=== PATIENT | female | born 1995 | race Caucasian/White ===

== ENCOUNTER 2023-07-15 08:07 | Outpatient (CLI) | payer BC, SELFPAY ==
--- NOTE | 2023-07-15 08:15 | CRLHL7_ITS ---
For Patients: As a result of the Cures Act, medical imaging exams and procedure reports are released immediately into your electronic medical record. You may view this report before your referring provider. If you have questions, please contact your health care provider. INDICATION: First trimester scan, establish dates. COMPARISON: None. TECHNIQUE: Real-time rodriguez-scale imaging of the pelvis was performed. FINDINGS: Sonographic imaging demonstrates a single living intrauterine gestation. The embryo demonstrates a regular cardiac rate measuring 154 beats per minute. The embryo`s crown-rump length measurement of 1.6 cm corresponds to a gestational age of 8 weeks 0 days with a sonographic due date of 02/24/2024. There is a normal-appearing yolk sac. There are no gross abnormalities noted within the embryo at this early state of development. Incidental small cystic area adjacent to the gestational sac measuring 6 x 5 x 7 millimeters, of no significance. There is no evidence of a perigestational hemorrhage. The amount of fluid within the sac appears appropriate for gestational age. The cervix is closed. The myometrium appears normal. The ovaries are of normal size. Corpus luteal cyst left ovary. There are no suspicious fluid collections noted in the cul-de-sac. IMPRESSION: Single living intrauterine with sonographic gestational age 8 weeks 0 days and sonographic due date of 02/24/2024. Dictated by Edu Mosqueda MD @ 07/15/2023 9:59:37 AM (Electronically Signed)
== END 2023-07-15 08:08 | disposition home or self-care (01) ==
LOC: US 08:08
PROVIDERS: Visit Provider Advanced Practice Midwife
DX: Z34.91 Encounter for supervision of normal pregnancy, unspecified, first trimester (principal); Z3A.08 8 weeks gestation of pregnancy
CPT/HCPCS: 76817; 86703; 86706; 86803; 86850; 86900; 86901; 87086; 87340; 87491; 87591

== ENCOUNTER 2023-07-15 09:09 | Outpatient (CLI) | payer BC, SELFPAY ==
[2023-07-15 13:04] LABS: Chlamydia DNA Amplified* NOT DETECTED (No Detected); GC DNA Amplified* NOT DETECTED (No Detected)
== END 2023-07-15 09:10 | disposition home or self-care (01) ==
PROVIDERS: Visit Provider Advanced Practice Midwife
DX: Z34.91 Encounter for supervision of normal pregnancy, unspecified, first trimester (principal)
CPT/HCPCS: 86592; 86703; 86704; 86706; 86762; 86787; 86803; 86850; 86900; 86901; 87086; 87340; 87491; 87591

== ENCOUNTER 2023-11-04 11:19 | Outpatient (CLI) | payer BC, SELFPAY | END 2023-11-04 11:20 | disposition home or self-care (01) | LOC: NFLDREF 11:20 | PROVIDERS: Visit Provider Advanced Practice Midwife | DX: Z34.92 Encounter for supervision of normal pregnancy, unspecified, second trimester (principal) | CPT/HCPCS: 86592 ==

== ENCOUNTER 2023-11-12 07:16 | Outpatient (CLI) | payer BC, SELFPAY ==
--- NOTE | 2023-11-12 07:15 | CRLHL7_ITS ---
For Patients: As a result of the Century Cures Act, medical imaging exams and procedure reports are released immediately into your electronic medical record. You may view this report before your referring provider. If you have questions, please contact your health care provider. INDICATION: Right upper quadrant abdomen pain, patient 25 weeks TECHNIQUE: Ultrasound abdomen limited. Sonographic images of the right upper quadrant were obtained using rodriguez-scale and color Doppler images. COMPARISON: None FINDINGS: Liver: Normal in size and echotexture. No masses. No intrahepatic biliary dilatation. Gallbladder: No stones or sludge. Normal wall thickness. No pericholecystic fluid. Common bile duct: 3 mm. Pancreas: Normal. Right kidney: Normal in size. Moderate right hydronephrosis. No nephrolithiasis seen. IMPRESSION: 1. Moderate right hydronephrosis, possibly due to uterine compression. No nephrolithiasis seen by ultrasound. 2. Otherwise, remainder of the right upper quadrant ultrasound is unremarkable. No evidence of cholelithiasis or cholecystitis. Dictated by Macho Clinton MD @ 11/12/2023 4:23:41 PM (Electronically Signed)
== END 2023-11-12 07:17 | disposition home or self-care (01) ==
PROVIDERS: PCP Family Medicine; Visit Provider Advanced Practice Midwife
DX: R10.11 Right upper quadrant pain (principal); N13.30 Unspecified hydronephrosis
CPT/HCPCS: 76705

== ENCOUNTER 2023-11-18 15:49 | Outpatient (CLI) | payer BC, SELFPAY | END 2023-11-18 15:50 | disposition home or self-care (01) | PROVIDERS: PCP Family Medicine; Visit Provider Family Medicine | DX: R10.11 Right upper quadrant pain (principal) | CPT/HCPCS: 80053 ==

== ENCOUNTER 2024-01-27 15:41 | Outpatient (CLI) | payer BC, SELFPAY ==
[2024-01-27 15:49] VITALS: PULSE 67; O2SAT 98
[2024-01-27 15:54] VITALS: PULSE 72; O2SAT 97
[2024-01-27 15:57] VITALS: BP 133/87; PULSE 72; RESP 16; TEMP 36.6
[2024-01-27 15:59] VITALS: PULSE 67; O2SAT 97
--- NOTE | 2024-01-27 17:08 | PC.OBNST ---
The provider's electronic signature indicates the NST is reactive/appropriate for gestational age. *Note to provider: If an addendum is required, open the patient's chart and click on the note under the Nurse/Allied Health tab.
== END 2024-01-27 16:55 | disposition home or self-care (01) ==
LOC: OB OUT 15:43 → OB 15:46
PROVIDERS: PCP Family Medicine; Visit Provider Advanced Practice Midwife
DX: O35.BXX0 Maternal care for other (suspected) fetal abnormality and damage, fetal cardiac anomalies, not applicable or unspecified (principal); Z3A.36 36 weeks gestation of pregnancy
CPT/HCPCS: 59025; 87081; 87653; G0463

== ENCOUNTER 2024-02-06 09:30 | Inpatient (IN) | payer BC, SELFPAY ==
[2024-02-06] VITALS (84 sets, daily range): BP systolic 85–159; BP diastolic 50–102; PULSE 59–112; RESP 16; TEMP 36.6–37; O2SAT 88–100; BMI 31.8
[2024-02-06 09:47] LABS: Amnisure Rom* POSITIVE
[2024-02-06] MEDS: LACTATED RINGERS 1000 ML 1,000 ML 1200 ML IV ×2 (10:00→10:59)
--- NOTE | 2024-02-06 10:09 | P.LDBA_ITS ---
Subjective History of Present Illness Narrative: Charo is a 28 yo at 37 3/7 weeks gestation being admitted to Labor and Delivery for spontaneous onset of labor with SROM of clear fluid at 0815 this morning. She reports her labor started last night. She was able to sleep in between and woke up this morning with them getting more intense. She then said she vomited and had a gush of fluid so she was not sure if her water had broke or if she had peed. She has had minimal additional leaking of fluid. She e ndorses good movement and denies any bleeding. She is requesting an epidural for pain. Fetus has known Down Syndrome with suspected club feet, otherwise no other anomalies identified. Mom is on Lexapro 10 mg. Her full history and physical was dictated by Dr. Morgan on 02/04/2024. Please see this for details. Specific Issues/Plans Juan H&P by [facility] on 02/04/24 # Down Syndrome of fetus, positive Trisomy 21 testing Positive [id number] for Trisomy 21 Referral placed to [facility]/Genetic counselor with [facility] 08/06: [facility] for FISH testing at [facility], positive Trisomy 21. early level 2 scan at 17 weeks (scheduled on 09/19), and echo at 21 weeks (scheduled on 10/15/23). 09/19/2023: Level II US Echogenic intracardiac foci noted in left ventricle, suspected bilateral club feet, hypoplastic nasal bone, thickened nuchal fold, no other anomalies identified; Follow-up growth and anatomy in 3 weeks 10/15/2023: Level II follow-up. Hypoplastic nasal bone and bilateral club feet. EFW 53%ile. Suboptimal views of cervical spine, thoracic spine, lumbar spine, and sacral spine. Follow-up in 4 weeks with ongoing surveillance of growth. 11/11/2023: Level II follow-up. Remaining anatomy survey completed, no new anomalies detected; Growth WNL; Mild Polyhydramnios. Growth in 4 weeks, fluid recheck in 2 weeks. 11/25: See fluid follow-up below 01/15: BPP 8/8. bilateral club feet, MVP 7.0, EFW 12% 01/19: BPP 8/8, MVP 4.9 01/26: BPP 8/8, MVP 5.1, EFW 13% Weekly BPP at 32 weeks, with MFM. Weekly BPP for 37-40 weeks with NFH+C. Delivery recommended at 39 0/7 per MFM: scheduled for 02/17/24 # Persistent RUQ pain after eating. abdominal u/s ordered, r/o gallbladder problem, follow up with PCP after to discuss plan. Seen PCP with Normal workup. rpt if worsens # Mild Polyhydramnios, RESOLVED MVP 9.3 cm, VAZQUEZ 24.2 cm. Reassess fluid in 2 weeks with MFM 11/25: Mild poly follow-up, VAZQUEZ 24.8. breech presentation. 12/08: Poly resolved. VAZQUEZ 21.4, cephalic, EFW 35% # Migraine with aura has used Imitrex in the past # Orthostatic hypotension since age 12, per pt just gets dizzy when she gets up too fast # Anxiety/social anxiety Lexapro 10 mg Sees therapist every other week-coping ok at this time with diagnosis with therapy and medication. # Bilateral Club feet COVID: initial series and boosted x1 Flu: 06/11/2023 TDAP: 12/16/2023 OB - Problem Based A/P Additional Plan (1) Pain during labor: Status: Acute (2) Trisomy 21 of fetus, current : Status: Acute (3) Anxiety: Problem details: lexapro working well Status: Acute (4) Orthostatic hypotension: Problem details: since age 12 Status: Acute (5) 37 weeks gestation of : Status: Acute Plan ASSESSMENT:? 28 at 37 3/7 weeks gestation? complicated by:?Fetus with Down Syndrome, Mild Polyhydramnios resolved, Migraine with aura, orthostatic hypotension, Anxiety on Lexapro, bilateral club feet. Labor type: Spontaneous, Active labor? Category 1 FHR pattern.?? Labor complicated by: none? GBS negative? ? PLAN:? 1. Routine intrapartum cares as ordered. Continue with expectant management? 2. Monitoring per policy, continuous with epidural in place 3. Candidate for analgesia of choice if desired.? 4. Patient encouraged to reposition and ambulate to promote physiologic labor and .? 5. Peds provider notified of patient arrival. Will plan to have Peds in attendance at delivery. 6. Per OB Collaboration agreement, Dr. Hancock notified of patient on unit with suspected anomaly/genetic abnormality. 7. Anticipate ? Delivery/Labor/Induction Plan Plan: expectant management OB Exam Physical Exam Vital signs: Pulse BP Pulse Ox 73 116/83 99 02/06/24 09:20 02/06/24 09:20 02/06/24 09:21 Narrative: Vitals Reviewed Constitutional:? Alert and oriented x3 HEENT:? Normocephalic, atraumatic Neck:? Supple Lungs:? Clear to auscultation bilaterally Heart:? Regular rate and rhythm, no murmur, rub or gallop Abdomen:? Soft, nontender, and gravid. Vertex by Raymond's, confirmed with cervical exam. Extremities:? No edema or erythema Cervix: 5 cm/90%/-1 station/vertex NST: 115 bpm/moderate variability with episodes of minimal/10x10 accelerations/no decelerations/contractions every 2-4 minutes
[2024-02-06 10:23] LABS: Basophils Percent Auto 0.2 % (0.0-3.0); Eosinophils Percent Auto 0.3 % (0.0-7.0); Hematocrit 42.1 % (33.0-51.0); Hemoglobin* 13.9 gm/dL (12.0-16.0); Immature Granulocytes Pct Auto 1.1 %; Lymphocytes Percent Auto 9.4 % (20-44); Mean Corpuscular HGB Conc 33 gm/dL (32-36); Mean Corpuscular Hemoglobin 27 pg (26-34); Mean Corpuscular Volume 83 fL (80-100); Monocytes Percent Auto 4.4 % (0.0-11.0); Neutrophils Percent Auto 84.6 % (42.0-72.0); Platelet Count* 164 K/uL (140-440); RDW Coefficient of Variation % 13.3 % (11.5-15.5); White Blood Count* 13.26 K/uL (4.50-11.00)
[2024-02-06 10:32] LABS: Slide Review Reflex No
[2024-02-06] MEDS: LIDOCAINE 2% (PF) 5 ML VIAL EPIDURAL (10:41)
[2024-02-06] MEDS: ROPIVACAINE 0.2% 100 ml 100 ML 12 MG EPIDURAL (10:41)
--- NOTE | 2024-02-06 10:51 | PM.ANBPRC ---
[facility] Medical History History of toxic shock syndrome ?Z86.19 - Personal history of other infectious and parasitic diseases (ICD-10) Surgical History History of tympanostomy tube placement ?Z96.22 - Myringotomy tube(s) status (ICD-10) [place] teeth extracted ?K08.409 - Partial loss of teeth, unspecified cause, unspecified class (ICD-10) H/O rhinoplasty ?Z98.890 - Other specified postprocedural states (ICD-10) Family History Family/Other Breast cancer Father High blood pressure Psoriasis Maternal Grandfather Heart disease Maternal Grandmother Breast cancer Mother Breast cancer, Onset Age: 54 Depression High blood pressure Uncle Heart disease Cancer Aunt COPD (chronic obstructive pulmonary disease) Heart disease Paternal Grandmother Osteoporosis Sister Seizure disorder Social History Narrative: SOCIAL? ? Education: working on doctorate? ? 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 ? Partner: Juan? residential real estate assistant? Lives with: Juan, has roommate also fellow student? ? Pets: 3 dogs and one cat is roommates and she manages litter box? ? Abuse: Denies past ? Unable to assess current, partner present? ? Special Diet: Denies? ? Ok with a blood transfusion: yes? ? Culture or jainism beliefs: denies? RISK FACTORS? ? Exercise Times/wk: weight lifting and walking on treadmill, walking dogs about 3-4 times a week? ? Depression/Anxiety: yes anxiety? ? Previous Treatments: currently on medication ? Therapy current every other wekk SEGUN: 2 PHQ 9: 1? ? Seat Belt Use: Routinely ? Smoking: Denies past/present? ? Alcohol/day: Denies while ? socially when not ? Caffeine: one cup of coffee a day right now, used to drink energy drinks? ? Drug Use: Denies past/present? ? What is your current living situation?: I presently have a place to live Problems where you live: no known problems In the past 12 months, utilities in danger of being shut off: no In past 12 months, lack of transportation kept you from medical appts, meetings, work, or getting things needed for daily living: no In the past 12 mos, have been you worried that your food would run out before you had money to buy more?: never true In the past 12 mos, the food you bought just didn't last and you didn't have money to buy more?: never true Smoking Status: Never smoker How often does anyone, including family, friends and others, physically hurt you: never How often does anyone, including family, friends and others, insult or talk down to you: never How often does anyone, including family, friends and others, threaten you with harm: never How often does anyone, including family, friends and others, scream or curse at you: never Little interest or pleasure in doing things: not at all Feeling down, depressed, or hopeless: not at all Meds Home Medications and Allergies Home Medications Medication Instructions Recorded Confirmed Type doxylamine succinate 25 mg tablet 25 mg PO QHS PRN 07/15/23 02/06/24 History (Unisom (doxylamine)) vits no.126-ferrous fum 1 tab PO DAILY 07/15/23 02/06/24 History 28 mg iron-folic acid 800 mcg tablet (Classic ) pyridoxine (vitamin B6) 25 mg 25 mg PO BID 07/15/23 02/06/24 History tablet cholecalciferol (vitamin D3) 125 125 mcg PO QDAY 08/12/23 02/06/24 History mcg (5,000 unit) capsule aspirin 81 mg chewable tablet 81 mg PO QDAY 10/08/23 02/06/24 History calcium carbonate (Tums) 200 mg PO BID 12/30/23 02/06/24 History Allergies Allergy/AdvReac Type Severity Reaction Status Date / Time amoxicillin Allergy Mild Hives Verified 02/06/24 00:28 Results Labs Labs: Laboratory Results - last 24 hr 02/06/24 02/06/24 09:41 10:03 WBC 13.26 H RBC 5.10 Hgb 13.9 Hct 42.1 MCV 83 MCH 27 MCHC 33 RDW Coeff of Kenna 13.3 Plt Count 164 Neut % (Auto) 84.6 H Lymph % (Auto) 9.4 L [place] % (Auto) 4.4 Eos % (Auto) 0.3 Baso % (Auto) 0.2 Neut # (Auto) 11.20 H Lymph # (Auto) 1.20 [place] # (Auto) 0.60 Eos # (Auto) 0.00 Baso # (Auto) 0.00 Abs Immat Gran (auto) 0.10 Imm/Tot Granulo (auto) 1.1 Membrane Rupture POSITIVE Vital Signs Vital Signs: Last Vital Signs Pulse 91 02/06/24 10:50 BP 118/80 02/06/24 10:50 Pulse Ox 99 02/06/24 10:47 Weight: 78.982 kg Height: 157.48 cm Anesthesia Procedures Epidural Insertion Patient Location: OB Start Time: Stop Time: Start Date: 02/06/24 Stop Date: 02/06/24 Reason for Block: procedure for pain Patient Position: sitting Performed By: Wendie Flores Preanesthetic Checklist: IV checked, risks and benefits discussed, monitors and equipment checked, pre-op evaluation, timeout performed and anesthesia consent Prep: chlorhexidine gluconate Monitoring: blood pressure monitoring, continuous pulse oximetry and heart rate Approach: midline Vertebral Space: lumbar (1-5) Epidural Technique: ANASTASIIA saline Needle Type: Tuohy needle Injection Technique: continuous catheter (continuous catheter) Needle gauge: 17 Needle Length (cm): 10 cm Needle Insertion Depth (cm): 6 Catheter Gauge: 19 Catheter Type: multi-orifice Catheter at skin depth (cm): 15 Test Dose Result: negative and lidocaine 1.5% with epinephrine 1 to 200,000
[2024-02-06] MEDS: PHENYLEPHRINE 100 MCG/ML SYRINGE IVP (11:39)
[2024-02-06] MEDS: LACTATED RINGERS 1000 ML 1,000 ML 125 ML IV (14:09)
[2024-02-06] MEDS: OXYTOCIN 30 unit/500 ML in NS 30 UNIT/500 ML BAG 300 UNIT IVPB ×2 (15:57→19:05)
--- NOTE | 2024-02-06 16:12 | W.PM.VAGDE_ITS ---
OB Procedure Vag Delivery Mother Details Mother Details: The patient is a 28 year-old, 1, now Para 1, admitted on 02/06/24 at 37 3/7 weeks gestation. : 1 Para: 1 Weeks Gestation: 37.3 Admission Date: 02/06/24 Additional Details Amniotic Membrane Status: SROM Amniotic Membrane Rupture Date: 02/06/24 Amniotic Membrane Rupture Time: 08:15 Amniotic Membrane Fluid Description: Clear Analgesia/Anesthesia Type: Epidural Waterbirth: No [place]: Yes ([facility] only) Labor Onset: 09:45 Complete: 15:19 Pushin:32 Heart: heart tones during second stage were category II with minimal to moderate variability and decelerations with pushing that slowly returned to baseline between. This improved with position changes and guided breathing. Delivery Details Delivery Date: 02/06/24 Delivery Time: 15:46 Route of delivery: Infant Gender: Male Infant Viability: Alive; Heart Rate Present Position at Delivery: OA Delivery Details: Patient was admitted for spontaneous onset of labor with SROM. She progressed normally. SROM occurred at 0815 with clear fluid. Patient received an epidural for pain management. She was then able to rest a bit. Patient was complete at 1519 and pushing at 1532. of a viable male at 1546 in semi-simon right tilt on the bed. Vertex delivered OA. With cord across shoulders, no nuchal cord or shoulder. Body delivered easily and without incident. Infant was somersaulted through cord then amniotic sac was removed from infants face before being passed to mothers abdomen. Minimal effort was made to cry or breath, decision was made to clamp and cut cord at <30 seconds. Peds in attendance of delivery. [place] was then taken to warmer by RN for further assessment by Dr. Montoya, peds provider. APGARS were 7 at one minute and 7 at five minutes and 9 at 10 minutes respectively. Mouth was bulb suctioned. Intact placenta with a 3 vessel cord delivered spontaneously at 1556. Fundus firm. Intact perineum with small approximately 2 cm hematoma at 5 o'clock of vaginal opening. Small right periurethral laceration identified, not repaired. QBL 100 cc. Mother and baby stable; mother plans to breastfeed. weight pending. 1 Minute Interval Total Score: 7 5 Minute Interval Total Score: 7 10 Minute Interval Total Score: 9 Additional Details Shoulder Dystocia: No Placenta Delivery Time: 15:56 Placental Delivery Description: Spontaneous Procedure Done: Global Blood Loss: 100 Laceration: Periurethral - 1st Degree Blood Loss Measurement Type: QBL Bakri Used: No Sponge/Need Count Correct: Yes Cord Vessel Description: 3 Vessels (across shoulders, somersaulted throu gh) Event Summary Status: Mother and infant were stable after delivery. Disposition: floor
[2024-02-06] MEDS: METHYLERGONOVINE MALEATE 0.2 MG/ML INJ IM (19:14)
[2024-02-06] MEDS: miSOPROStoL 800 MCG/4 TABLET PR (19:24)
[2024-02-07 04:43] VITALS: BP 116/76; PULSE 75; RESP 16; TEMP 36.9; O2SAT 96
[2024-02-07 06:28] LABS: Hemoglobin* 9.2 gm/dL (12.0-16.0)
[2024-02-07 08:10] VITALS: BP 122/87; PULSE 79; RESP 16; TEMP 36.8; O2SAT 96
[2024-02-07] MEDS: DOCUSATE SODIUM 100 MG CAPSULE PO (09:37)
--- NOTE | 2024-02-07 10:33 | PM.ANPOST ---
Post Anesthesia Note Post Anesthesia Note Patient seen: Inpatient Respiratory Status: adequate Cardiovascular Status: adequate Mental Status: baseline Pain: adequate Temp: baseline Anesthetic awareness: no Complications: none Follow care: none
--- NOTE | 2024-02-07 11:27 | PM.OBPNVD1 ---
OB - PN:Subj Subjective Time Seen by Provider: 11:00 Date Seen: 02/07/24 Patient comments OB post-: no complaints, pain well controlled, perineal pain, tolerating diet and flatus present [place] status: other (pumping as baby is unable to latch due to O2 sats, baby receiving O2 supplement and IV) [place] feeding status: other (expressing only at this time) Narrative: The patient feels well.? The pain is well controlled with current medications.? She has no new complaints.? Urinary output is adequate and she is voiding without difficulty.? Has a good appetite, is tolerating a general diet, is passing flatus, and has not had a bowel movement.? Has scant amount of rubra lochia.? She is ambulating well.? OB - PN: Obj Exam Physical Exam: Vital signs: Temp Pulse Resp BP Pulse Ox O2 Del Method 98.3 F 79 16 122/87 96 Room Air 02/07/24 08:10 02/07/24 08:10 02/07/24 08:10 02/07/24 08:10 02/07/24 08:10 02/07/24 08:10 Narrative: GENERAL APPEARANCE:? normal affect, alert, no distress? MOOD:? appropriate? CHEST:? clear to auscultation and percussion? HEART:? regular rate and rhythm? ABDOMEN:? soft, non-tender the uterine fundus is U/2 and is appropriate for the stage of recovery.? PERINEUM:? mild edema of the perineum, there is a 1st degree laceration that is healing well.? EXTREMITIES:? normal and no edema? OB - PN: Obj Data Labs Labs: Laboratory Results - last 24 hr 02/07/24 06:16 Hgb 9.2 L OB - PN: A/P Delivery Assessment and Plan (1) Anxiety: Problem details: lexapro working well Status: Acute (2) Delayed hemorrhage: Status: Acute (3) Anemia: Status: Acute (4) Lactating mother: Status: Acute (5) care following vaginal delivery: Status: Acute Plan day: 1 Plan: routine care Comments: Anticipate discharge home tomorrow.
[2024-02-07 12:09] VITALS: BP 120/82; PULSE 91; RESP 16; TEMP 36.7; O2SAT 97
[2024-02-07] MEDS: FERROUS SULFATE 325 MG TABLET PO (14:02)
[2024-02-07 16:39] VITALS: BP 126/80; PULSE 87; RESP 16; TEMP 36.6; O2SAT 97
[2024-02-07 18:06] LABS: Rapid Plasma Reagin (RPR) Non Reactive (Non Reactive)
[2024-02-08 01:48] VITALS: BP 128/89; PULSE 74; RESP 16; TEMP 36.8; O2SAT 97
[2024-02-08 08:00] VITALS: BP 111/76; PULSE 85; RESP 16; TEMP 36.6; O2SAT 98
[2024-02-08] MEDS: DOCUSATE SODIUM 100 MG CAPSULE PO (08:07)
--- NOTE | 2024-02-08 10:29 | P.DS_ITS ---
DS: Providers Provider Time Seen by Provider: 10:00 Date Seen: 02/08/24 Date of admission: 02/06/24 09:30 Primary care physician: Brayan Rios MD Admitting Clinician: Addis Saravia CNM Consults: 02/07/24 14:20 Consult to Team Automobile Assembler [CONS] Routine Comment: Reason for Consult:: Discharge Planning Needs Attending Physician on discharge: Addis Saravia CNM Date of Discharge: 02/08/24 DS: Diagnosis Discharge Diagnosis (1) care following vaginal delivery: Status: Acute (2) Lactating mother: Status: Acute (3) Delayed hemorrhage: Status: Acute (4) Anemia: Status: Acute (5) Anxiety: Status: Acute Problem details: lexapro working well Exam Narrative: Exam Narrative: GENERAL APPEARANCE:? normal affect, alert, no distress? MOOD:? appropriate? CHEST:? clear to auscultation and percussion? HEART:? regular rate and rhythm? ABDOMEN:? soft, non-tender the uterine fundus is U/2 and is appropriate for the stage of recovery.? PERINEUM:? mild edema of the perineum, there is a 1st degree periurethral that is healing well.? EXTREMITIES:? normal and no edema? Const: Vital Signs, click to edit/add: Vital Signs - 24 hr 02/07/24 12:09 02/07/24 16:39 02/08/24 01:48 Temperature 98.1 F 97.8 F 98.2 F Pulse Rate [Pulse Oximeter] 91 87 74 Respiratory Rate 16 16 16 Blood Pressure [Le ft Arm] 120/82 126/80 128/89 Pulse Oximetry 97 97 97 Oxygen Delivery Me thod Room Air Room Air Room Air 02/08/24 08:00 Temperature 97.8 F Pulse Rate [Pulse Oximeter] 85 Respiratory Rate 16 Blood Pressure [Le ft Arm] 111/76 Pulse Oximetry 98 Oxygen Delivery Me thod Room Air Documenting provider has reviewed patient's vital signs: yes OB - DS: Summary Hospital Course Hospital Course: The patient is a 28 year old G 1 P 1 at 37.3 weeks gestation that was admitted to the Center on 02/06/24 for labor after SROM. She had an complicated vaginal delivery. She did ahve a delayed hemorrhage with QBL of 1100 and subsequently anemia. She delivered a viable male infant. She is breast feeding but only pumping at this time as baby is on O2 and unable to latch. the patient has done well. Her pain is well controlled with current medications.? She has no new complaints.? Urinary output is adequate and she is voiding without difficulty.? Has a good appetite, is tolerating a general diet, is passing flatus, and has had a bowel movement.? Has scant amount of rubra lochia.? She is ambulating well. She is planning on oral contraception for control. Sent PO iron supplement prescription for anemia but denies feeling lightheaded, dizzy or fatigued. Peripartum Data Infant delivery method: Vaginal Laceration description: Periurethral - 1st Degree Episiotomy description: None complications: none Infant Gender: Male Discharge Plan: remains hospitalized at time of maternal discharge Status at Discharge Functional status at discharge: independent ambulation Overall status at discharge: patient is progressing back to baseline Time Spent with Patient Time attestation: Total time spent providing and/or coordinating discharge services: Discharge Plan Discharge Disposition: Home, Self-Care Date of Admission: 02/06/24 09:30 Attending Provider on Discharge: Zeina Peres Primary Care Provider: Brayan Rios Condition: Stable Anticipated Discharge Date/Time: 02/08/24 18:00 Discharge Medications: New docusate sodium 100 mg Capsule 100 mg PO DAILY Qty: 90 0RF Rx Instructions: Take 1-2 tablets daily as needed for constipation. ferrous sulfate 325 mg (65 mg iron) Tablet 325 mg PO Q48H Qty: 60 0RF ibuprofen 600 mg Tablet 600 mg PO Q6H PRNQty: 30 0RF Continued cholecalciferol (vitamin D3) 125 mcg (5,000 unit) capsule 125 mcg PO QDAY Classic 28 mg iron- 800 mcg tablet 1 tab PO DAILY Unisom (doxylamine) 25 mg tablet 25 mg PO QHS PRN calcium carbonate [Tums] 200 mg calcium (500 mg) tablet,chewable 200 mg PO BID escitalopram oxalate 10 mg tablet 10 mg PO QDAY Qty: 90 3RF Discontinued pyridoxine (vitamin B6) 25 mg tablet 25 mg PO BID aspirin 81 mg tablet,chewable 81 mg PO QDAY Discharge Orders: Discharge Order (Routine); Ordered 02/08/24 Ordered By: Zeina Peres Patient Education: OB Vaginal/Breast Feeding Additional Instructions: Discharge instructions were reviewed with the patient including signs and symptoms of infection and home going medications.? Lifting Restrictions: 20 pounds for 6? weeks? ?? Do not drive while taking narcotic pain meds.? Off Work or School for 6 weeks.? ?? Symptoms to report to doctor:? -Bleeding that saturates more than one pad per hour? -Passing clots larger than the size of a golf ball? -Pain not relieved by prescribed medication? -Fever above 100.4 degrees Fahrenheit? -A foul vaginal odor? -Difficulty in emotions, mood and functions? -Thoughts of hurting yourself and/or ? -Painful, reddened area in your breast? -Any drainage, redness or tenderness in your IV/epidural site? -Severe headache that doesn't improve after taking medications? -Changes in vision, including temporary loss of vision, blurred vision, and/or light sensitivity? -Upper abdominal pain (usually under ribs on the right side)? -Decrease in urination or painful, frequent urinating? -Chest pain? -Shortness of breath? -Tenderness or pain with redness and/swelling in the calf(s) of your leg? ?? Follow Up in clinic in 2 and 6 weeks.? ?? consultation services are available to all mothers and babies for the first year after delivery.? To make an appointment, please call [phone].? Activity Level: Activity as Tolerated Discharge Diet: Regular Follow Up Appointments: [facility] [Provider Group] Forms: [employer] Info Instructions
[2024-02-08 16:45] VITALS: BP 137/83; PULSE 78; RESP 16; TEMP 37.1; O2SAT 98
== END 2024-02-08 19:06 | disposition home or self-care (01) | DRG 560 ==
LOC: OB OUT 10:18 → OB 10:18
PROVIDERS: Admitting Provider Advanced Practice Midwife; PCP Family Medicine; Visit Provider Advanced Practice Midwife
DX: O42.02 Full-term premature rupture of membranes, onset of labor within 24 hours of rupture (principal); O35.13X0 Maternal care for (suspected) chromosomal abnormality in fetus, Trisomy 21, not applicable or unspecified; Z3A.37 37 weeks gestation of pregnancy; Z37.0 Single live birth; O71.82 Other specified trauma to perineum and vulva; O99.344 Other mental disorders complicating childbirth; F41.9 Anxiety disorder, unspecified; O99.892 Other specified diseases and conditions complicating childbirth; I95.1 Orthostatic hypotension; G43.109 Migraine with aura, not intractable, without status migrainosus; O90.81 Anemia of the puerperium; D62 Acute posthemorrhagic anemia
CPT/HCPCS: 01967; 36415; 59025; 76819; 84112; 85018; 85025; 86592; 86850; 86900; 86901; 88307; G0463; A9270; J2210; J2270; J2371; J2795; J7120

== ENCOUNTER 2024-12-03 11:28 | Outpatient (CLI) | payer BC, SELFPAY | END 2024-12-03 11:29 | disposition home or self-care (01) | LOC: US 11:29 | PROVIDERS: PCP Family Medicine; Visit Provider Advanced Practice Midwife | DX: Z34.91 Encounter for supervision of normal pregnancy, unspecified, first trimester (principal); Z3A.08 8 weeks gestation of pregnancy | CPT/HCPCS: 76817 ==

== ENCOUNTER 2024-12-03 12:37 | Outpatient (CLI) | payer BC, SELFPAY | END 2024-12-03 12:38 | disposition home or self-care (01) | PROVIDERS: PCP Family Medicine; Visit Provider Advanced Practice Midwife | DX: Z34.91 Encounter for supervision of normal pregnancy, unspecified, first trimester (principal); Z3A.08 8 weeks gestation of pregnancy | CPT/HCPCS: 83020; 83021; 85660; 86592; 86703; 86704; 86706; 86762; 86787; 86803; 86850; 86900; 86901; 87086; 87340 ==

== ENCOUNTER 2024-12-17 09:42 | Outpatient (CLI) | payer BC, SELFPAY | END 2024-12-17 09:43 | disposition home or self-care (01) | LOC: NFLDREF 12-20 07:12 | PROVIDERS: PCP Family Medicine; Referring Provider Family Medicine; Visit Provider Advanced Practice Midwife | DX: Z34.81 Encounter for supervision of other normal pregnancy, first trimester (principal) | CPT/HCPCS: 87491; 87591 ==

== ENCOUNTER 2025-02-10 12:12 | Outpatient (CLI) | payer BC, SELFPAY | END 2025-02-10 12:13 | disposition home or self-care (01) | LOC: US 12:13 | PROVIDERS: PCP Family Medicine; Visit Provider Midwife | DX: O09.292 Supervision of pregnancy with other poor reproductive or obstetric history, second trimester (principal); Z3A.18 18 weeks gestation of pregnancy | CPT/HCPCS: 76811 ==

== ENCOUNTER 2025-02-13 16:42 | Emergency (ER) | payer BC, SELFPAY ==
--- OUTSIDE RECORDS SUMMARY | 2025-02-13 16:44 | XMS_ITS | Clinical Summary ---
Author Organization [facility] Address [address] [place] [address] Care Team Providers Care Fire Fighter Name Role Phone No Ref-Primary, Physician Primary Care Provider Kenzie Villegas MD Unavailable [phone] Allergies Active Allergy Reactions Criticality Noted Date Comments Amoxicillin Hives,Itching 08/06/2023 Social History Tobacco Use Types Packs/Day Years Used Date Smoking Tobacco: Never Assessed Adolescent Education Answer Date Record ed Getting School Help Needed Not on file 08/05 Comments No Sex and Gender Information Value Date Recorded Sex Assigned at Not on file Legal Sex Female 11:00 AM CDT Gender Identity Not on file Sexual Orientation Not on file Plan of Treatment Health Maintenance Due Date Last Done Comments ADVANCE CARE PLANNING 1996 ANNUAL REVIEW OF HM ORDERS 1996 HEPATITIS C SCREENING 2014 YEARLY PREVENTIVE VISIT 05/02/2022 05/02/2021 PAP 05/02/2024 05/02/2021 COVID-19 Vaccine ( season) 2024 11/15/2021, 10/28/2020, 09/28/2020 PHQ-2 (once per calendar year) 2024 INFLUENZA VACCINE (Season Ended) 2025 06/11/2023, 07/20/2022, 07/20/2022, Additional history exists DTAP/TDAP/TD IMMUNIZATION (9 - Td or Tdap) 12/15/2033 12/16/2023, 12/31/2016, 04/02/2007, Additional history exists ZOSTER IMMUNIZATION (1 of 2) 2046 HEPATITIS B IMMUNIZATION Completed 997, 1996, 1996 HPV IMMUNIZATION Completed 05/26/2010, 12/2007, 04/02/2007 MENINGITIS IMMUNIZATION Completed 05/09/20 13, 05/09/2012, 04/02/2007 HIV SCREENING Completed 09/12/2018 Pneumococcal Vaccine: Pediatrics (0 to 5 Years) and At-Risk Patients (6 to 49 Years) Aged Out No longer eligible based on patient's age to complete this topic Insurance BCBS OUT OF STATE BCBS OUT OF STATE Care Teams Fire Fighter Relationship Specialty Start Date End Date No Ref-Primary, Physician PCP - General 08/06/23 Kenzie Villegas MD [address] [place] [address] Assigned OBGYN Provider 10/31/23
[2025-02-13 16:48] VITALS: BP 112/78; PULSE 111; RESP 16; TEMP 37.1; O2SAT 97; BMI 24.7
--- NOTE | 2025-02-13 17:23 | ED_ITS ---
HPI - General Adult General Chief complaint: Abdominal Pain Stated complaint: GI issue, 18 weeks Time Seen by Provider: 02/13/25 16:51 History of Present Illness HPI narrative: This 29-year-old female is 18 weeks and comes in reporting persistent vomiting since this morning. Her young child came back from day care and she wonders if she picked up something to trigger these symptoms. The patient's also has GI symptoms but this is mostly diarrhea for him. She does not report any fevers. She has been taking sips of fluids. She does arrive here with normal vital signs but does have a bit of tachycardia. Related Data Home Medications ?Medication ?Instructions ?Recorded ?Confirmed vits no.126-ferrous fum 1 tab PO DAILY 07/15/23 02/13/25 28 mg iron-folic acid 800 mcg tablet (Classic ) pyridoxine (vitamin B6) 25 mg 25 mg PO QDAY 12/03/24 02/13/25 tablet doxylamine succinate 25 mg tablet 25 mg PO QHS PRN 12/31/24 02/13/25 (Unisom (doxylamine)) aspirin 81 mg chewable tablet 81 mg PO DAILY 02/13/25 02/13/25 (Aspirin Childrens) Previous Rx's ?Medication ?Instructions ?Recorded breast pump #1 ea 02/17/24 ondansetron HCl 4 mg tablet 4 mg PO Q6H #15 tabs 02/13/25 Allergies Allergy/AdvReac Type Severity Reaction Status Date / Time amoxicillin Allergy Mild Hives Verified 02/13/25 16:55 Review of Systems Status of ROS: Reports: 10 or more systems reviewed and unremarkable except as noted in History and below Narrative: Constitutional: No fevers, no weight gain or loss. Eyes: No discharge. No vision changes. HENT: No congestion, no sore throat, no ear pain. Cardiovascular: No chest pain, no palpitations. Respiratory: No shortness of breath, no wheezes, no cough. Gastrointestinal: No abdominal pain, no diarrhea. Nausea and vomiting as described above. Genitourinary: No dysuria, no hematuria. Musculoskeletal: Normal range of motion. Skin: No rashes, no pruritis. Neurological: No dizziness, weakness, sensory change, speech change. Endo/Heme/Allergies: No bruising or bleeding. No polydipsia. Pysch: no suicidality, no anxiety, no insomnia. All other systems reviewed and are negative. [facility] Medical History (Updated 02/13/25 @ 17:56 by Nacho Park MD) Pelvic floor weakness in female ?N81.89 - Other female genital prolapse (ICD-10) Anemia ?D64.9 - Anemia, unspecified (ICD-10) Delayed hemorrhage ?O72.2 - Delayed and secondary hemorrhage (ICD-10) Trisomy 21 of fetus, current ?O35.13X0 - Maternal care for (suspected) chromosomal abnormality in fetus, Trisomy 21, not applicable or unspecified (ICD-10) History of toxic shock syndrome ?Z86.19 - Personal history of other infectious and parasitic diseases (ICD- 10) Surgical History History of tympanostomy tube placement ?Z96.22 - Myringotomy tube(s) status (ICD-10) [place] teeth extracted ?K08.409 - Partial loss of teeth, unspecified cause, unspecified class (ICD- 10) H/O rhinoplasty ?Z98.890 - Other specified postprocedural states (ICD-10) Family History Family/Other Breast cancer Father High blood pressure Psoriasis Maternal Grandfather Heart disease Maternal Grandmother Breast cancer Mother Breast cancer, Onset Age: 54 Depression High blood pressure Uncle Heart disease Cancer Aunt COPD (chronic obstructive pulmonary disease) Heart disease Paternal Grandmother Osteoporosis Sister Seizure disorder Social History (Updated 12/03/24 @ 15:41 by Keerhti Valero CNM) Narrative: Education: Doctorate finishing up soon? ? 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 ? Partner: Juan? works as service loss control consultant engineering Lives with: Rafiq Martinez age 10 months? ? Pets: 3 dogs Abuse: Denies past ? Unable to assess current, partner present? ? Special Diet: Denies? ? Ok with a blood transfusion: yes? ? Culture or tenriism beliefs: denies? RISK FACTORS? ? Exercise Times/wk: 1-3 times a week walk? ? Depression/Anxiety: hx of anxiety? ? Previous Treatments previous used Lexapro not current ? Therapy in past SEGUN: 0 PHQ 9: 0? ? Seat Belt Use: Routinely ? Smoking: Denies past/present? ? Alcohol/day: Denies while ? ? Caffeine: 100mg daily? ? Drug Use: Denies past/present? What is your current living situation?: I presently have a place to live Problems where you live: no known problems In the past 12 months, utilities in danger of being shut off: no In past 12 months, lack of transportation kept you from medical appts, meetings, work, or getting things needed for daily living: no In the past 12 mos, have been you worried that your food would run out before you had money to buy more?: never true In the past 12 mos, the food you bought just didn't last and you didn't have money to buy more?: never true Smoking Status: Never smoker How often do you have a drink containing alcohol: never AUDIT-C Alcohol total score: 0 Non-prescribed substance use: denies use How often does anyone, including family, friends and others, physically hurt you : never How often does anyone, including family, friends and others, insult or talk down to you: never How often does anyone, including family, friends and others, threaten you with harm: never How often does anyone, including family, friends and others, scream or curse at you: never Exam Narrative: Exam Narrative: Constitutional: Well-developed, well-nourished, no acute distress. HEENT: Normocephalic, atraumatic. Neck: Normal range of motion. Nontender. Supple. Heart: Regular. No murmurs. Normal rate. Intact distal pulses. Lungs: Clear to auscultation. No chest discomfort. No wheezes, rhonchi, or rales. Abdomen: Normal bowel sounds. Nontender. No rebound tenderness. Genitalia: Deferred. Back: No midline tenderness. Normal range of motion. Extremities: Normal range of motion. No injury. Skin: Intact. No rash. Warm. No erythema or pallor. Neurologic: No altered sensation. No weakness. Alert and oriented. Psychiatric: No suicidality. No anxiety or depression. No insomnia. Nursing notes and vitals signs are reviewed. Const: Vital Signs, click to edit/add: Vital Signs - 24 hr 02/13/25 16:48 Temperature 98.7 F Pulse Rate [Pulse Oximeter] 111 H Respiratory Rate 16 Blood Pressure [Ri ght Upper Arm] 112/78 Pulse Oximetry 97 Oxygen Delivery Me thod Room Air Course Vital Signs Vital signs: Initial Vital Signs Temperature 98.7 F 02/13/25 16:48 Temperature Source Temporal Artery Scan 02/13/25 16:48 Pulse Rate 111 H 02/13/25 16:48 Respiratory Rate 16 02/13/25 16:48 Blood Pressure 112/78 02/13/25 16:48 Blood Pressure Mean 89 02/13/25 16:48 Blood Pressure Position Sitting 02/13/25 16:48 Pulse Oximetry 97 02/13/25 16:48 Oxygen Delivery Method Room Air 02/13/25 16:48 Vital Signs Temperature 98.7 F 02/13/25 16:48 Pulse Rate 111 H 02/13/25 16:48 Respiratory Rate 16 02/13/25 16:48 Blood Pressure 112/78 02/13/25 16:48 Pulse Oximetry 97 02/13/25 16:48 Oxygen Delivery Method Room Air 02/13/25 16:48 Temperature 98.7 F 02/13/25 16:48 Pulse Rate 111 H 02/13/25 16:48 Respiratory Rate 16 02/13/25 16:48 Blood Pressure 112/78 02/13/25 16:48 Pulse Oximetry 97 02/13/25 16:48 Oxygen Delivery Method Room Air 02/13/25 16:48 Medications Administered Medications: Generic Name Dose Route Start Last Admin Trade Name Freq PRN Reason Stop Dose Admin Sodium Chloride 1,000 mls @ 1,000 mls/hr 02/13/25 17:30 02/13/25 17:36 0.9 % Sodium Chloride 1000 Ml IV 02/13/25 18:29 1,000 mls/hr .Q1H DESTINY Administration Discontinued Medications Generic Name Dose Route Start Last Admin Trade Name Freq PRN Reason Stop Dose Admin Ondansetron HCl 4 mg 02/13/25 17:23 02/13/25 17:37 Ondansetron 2 Mg/Ml Inj IVP 02/13/25 17:24 4 mg ONCE ONE Administration Medical Decision Making MDM Narrative Medical decision making narrative: This patient comes in reporting persistent vomiting today. She is 18 weeks and has not had vomiting prior to this in her . It seems likely that she has encountered some kind of virus or toxin. She does arrive with normal vital signs but initially had some tachycardia. At the time of my exam her heart rate was in normal range. An IV was established where she did receive a L of normal saline and 4 mg of Zofran. I did offer her lab and imaging studies which the patient declined in a process of shared decision making. The patient has not had any further symptoms of nausea or vomiting. She is okay to be discharged home. I did provide a prescription for some tablets of Zofran. Discharge Plan Discharge Clinical Impression: Vomiting, Patient Disposition: Home, Self-Care Condition: Stable Additional Instructions: Increase diet as tolerated. Take frequent sips of fluids. Use Zofran as needed and directed for nausea symptoms. Follow up with MD as scheduled or return if worsening. Prescriptions: New ondansetron HCl 4 mg tablet 4 mg PO Q6H Qty: 15 0RF No Action pyridoxine (vitamin B6) 25 mg tablet 25 mg PO QDAY Unisom (doxylamine) 25 mg tablet 25 mg PO QHS PRN Classic 28 mg iron- 800 mcg tablet 1 tab PO DAILY aspirin [Aspirin Childrens] 81 mg tablet,chewable 81 mg PO DAILY (DME) breast pump Device See Rx Instructions .Route Qty: 1 0RF Rx Instructions: As directed Follow Up/Referrals: Brayan Rios MD [Primary Care Provider] - Stand Alone Forms: [employer] Info Instructions
[2025-02-13] MEDS: 0.9 % SODIUM CHLORIDE 1000 ml 1,000 ML IV (17:36)
[2025-02-13] MEDS: ONDANSETRON 2 MG/ML inj 4 MG IVP (17:37)
--- OUTSIDE RECORDS SUMMARY | 2025-02-13 18:11 | XMS_ITS | Clinical Summary ---
Author Organization [facility] Address [address] [place] [address] Care Team Providers Care Delivery Truck Driver Heavy Name Role Phone No Ref-Primary, Physician Primary Care Provider Kenzie Villegas MD Unavailable [phone] Allergies Active Allergy Reactions Criticality Noted [...] STATE BCBS OUT OF STATE Care Teams Delivery Truck Driver Heavy Relationship Specialty Start Date End Date No Ref-Primary, Physician PCP - General 08/06/23 Kenzie Villegas MD [address] [place] [address] Assigned OBGYN Provider 10/31/23
== END 2025-02-13 18:29 | disposition home or self-care (01) ==
LOC: ED 18:07
PROVIDERS: Emergency Provider Emergency Medicine Emergency Medical Services; PCP Advanced Practice Midwife
DX: O21.9 Vomiting of pregnancy, unspecified (principal); Z3A.18 18 weeks gestation of pregnancy
CPT/HCPCS: 96374; 99284; J2405; J7030

== ENCOUNTER 2025-02-22 14:54 | Outpatient (CLI) | payer BC, SELFPAY | END 2025-02-22 14:55 | disposition home or self-care (01) | LOC: NFLDREF 02-26 00:48 | PROVIDERS: PCP Advanced Practice Midwife; Referring Provider Advanced Practice Midwife; Visit Provider Advanced Practice Midwife | DX: Z34.82 Encounter for supervision of other normal pregnancy, second trimester (principal) | CPT/HCPCS: 86317; 86644; 86645; 86778 ==

== ENCOUNTER 2025-04-21 14:21 | Outpatient (CLI) | payer OTHER, BC, SELFPAY | END 2025-04-21 14:22 | disposition home or self-care (01) | LOC: US 14:22 | PROVIDERS: Visit Provider Midwife | DX: O28.3 Abnormal ultrasonic finding on antenatal screening of mother (principal); Z3A.28 28 weeks gestation of pregnancy | CPT/HCPCS: 76816 ==

== ENCOUNTER 2025-04-23 14:36 | Outpatient (CLI) | payer OTHER, BC, SELFPAY | END 2025-04-23 14:37 | disposition home or self-care (01) | LOC: NFLDREF 04-26 16:35 | PROVIDERS: Referring Provider Advanced Practice Midwife; Visit Provider Advanced Practice Midwife | DX: Z34.93 Encounter for supervision of normal pregnancy, unspecified, third trimester (principal); Z3A.28 28 weeks gestation of pregnancy | CPT/HCPCS: 86592 ==

== ENCOUNTER 2025-05-26 14:00 | Outpatient (CLI) | payer OTHER, BC, SELFPAY | END 2025-05-26 14:01 | disposition home or self-care (01) | LOC: US 14:00 | PROVIDERS: Visit Provider Midwife | DX: Z34.93 Encounter for supervision of normal pregnancy, unspecified, third trimester (principal); Z3A.33 33 weeks gestation of pregnancy | CPT/HCPCS: 76816 ==

== ENCOUNTER 2025-06-25 14:04 | Outpatient (CLI) | payer OTHER, BC, SELFPAY | END 2025-06-25 14:05 | disposition home or self-care (01) | LOC: NFLDREF 07-01 01:28 | PROVIDERS: Visit Provider Advanced Practice Midwife | DX: Z34.93 Encounter for supervision of normal pregnancy, unspecified, third trimester (principal); Z3A.37 37 weeks gestation of pregnancy | CPT/HCPCS: 87081; 87653 ==

== ENCOUNTER 2025-07-08 06:50 | Inpatient (IN) | payer OTHER, BC, SELFPAY ==
[2025-07-08] VITALS (83 sets, daily range): BP systolic 74–140; BP diastolic 47–93; PULSE 58–137; RESP 12–20; TEMP 36.5–36.9; O2SAT 87–100; BMI 32.3
[2025-07-08 06:36] LABS: Amnisure Rom* POSITIVE
[2025-07-08] MEDS: LACTATED RINGERS 1000 ML 1,000 ML 990 ML IV (07:30)
[2025-07-08] MEDS: LIDOCAINE 2% (PF) 5 ML VIAL EPIDURAL (08:39)
--- NOTE | 2025-07-08 08:52 | PM.ANBPRC ---
[facility] Medical History Social anxiety disorder ?F40.10 - Social phobia, unspecified (ICD-10) Migraine headache with aura ?G43.109 - Migraine with aura, not intractable, without status migrainosus (ICD-10) Orthostatic hypotension ?I95.1 - Orthostatic hypotension (ICD-10) Anxiety ?F41.9 - Anxiety disorder, unspecified (ICD-10) Family history of breast cancer ?Z80.3 - Family history of malignant neoplasm of breast (ICD-10) Pelvic floor weakness in female ?N81.89 - Other female genital prolapse (ICD-10) Anemia ?D64.9 - Anemia, unspecified (ICD-10) Delayed hemorrhage ?O72.2 - Delayed and secondary hemorrhage (ICD-10) Trisomy 21 of fetus, current ?O35.13X0 - Maternal care for (suspected) chromosomal abnormality in fetus, Trisomy 21, not applicable or unspecified (ICD-10) History of toxic shock syndrome ?Z86.19 - Personal history of other infectious and parasitic diseases (ICD-10) Surgical History History of tympanostomy tube placement ?Z96.22 - Myringotomy tube(s) status (ICD-10) [place] teeth extracted ?K08.409 - Partial loss of teeth, unspecified cause, unspecified class (ICD-10) H/O rhinoplasty ?Z98.890 - Other specified postprocedural states (ICD-10) Family History Family/Other Breast cancer Father High blood pressure Psoriasis Maternal Grandfather Heart disease Maternal Grandmother Breast cancer Mother Breast cancer, Onset Age: 54 Depression High blood pressure Uncle Heart disease Cancer Aunt COPD (chronic obstructive pulmonary disease) Heart disease Paternal Grandmother Osteoporosis Sister Seizure disorder Social History Narrative: Education: Doctorate finishing up soon? ? 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 ? Partner: Juan? works as solar consultant engineering Lives with: Rafiq Martinez age 10 months? ? Pets: 3 dogs Abuse: Denies past ? Unable to assess current, partner present? ? Special Diet: Denies? ? Ok with a blood transfusion: yes? ? Culture or congregation beliefs: denies? RISK FACTORS? ? Exercise Times/wk: 1-3 times a week walk? ? Depression/Anxiety: hx of anxiety? ? Previous Treatments previous used Lexapro not current ? Therapy in past SEGUN: 0 PHQ 9: 0? ? Seat Belt Use: Routinely ? Smoking: Denies past/present? ? Alcohol/day: Denies while ? ? Caffeine: 100mg daily? ? Drug Use: Denies past/present? What is your current living situation?: I presently have a place to live Problems where you live: no known problems In the past 12 months, utilities in danger of being shut off: no In past 12 months, lack of transportation kept you from medical appts, meetings, work, or getting things needed for daily living: no In the past 12 mos, have been you worried that your food would run out before you had money to buy more?: never true In the past 12 mos, the food you bought just didn't last and you didn't have money to buy more?: never true Smoking Status: Never smoker How often do you have a drink containing alcohol: never AUDIT-C Alcohol total score: 0 Non-prescribed substance use: denies use How often does anyone, including family, friends and others, physically hurt you: never How often does anyone, including family, friends and others, insult or talk down to you: never How often does anyone, including family, friends and others, threaten you with harm: never How often does anyone, including family, friends and others, scream or curse at you: never Meds Home Medications and Allergies Home Medications ?Medication ?Instructions ?Recorded ?Confirmed ?Type vits no.126-ferrous fum 1 tab PO DAILY 07/15/23 07/08/25 History 28 mg iron-folic acid 800 mcg tablet (Classic ) breast pump #1 ea 02/17/24 07/02/25 Rx pyridoxine (vitamin B6) 25 mg 25 mg PO QDAY 12/03/24 07/08/25 History tablet doxylamine succinate 25 mg tablet 25 mg PO QHS PRN 12/31/24 07/08/25 History (Unisom (doxylamine)) aspirin 81 mg chewable tablet 81 mg PO DAILY 02/13/25 07/08/25 History (Aspirin Childrens) pantoprazole 20 mg tablet,delayed 20 mg PO DAILY #90 tabs 05/14/25 07/08/25 Rx release Allergies Allergy/AdvReac Type Severity Reaction Status Date / Time amoxicillin Allergy Mild Hives Verified 07/08/25 06:21 Results Labs Labs: Laboratory Results - last 24 hr 07/08/25 06:23 Membrane Rupture POSITIVE Vital Signs Vital Signs: Last Vital Signs Temp 98 F 07/08/25 07:57 Pulse 75 07/08/25 08:52 Resp 16 07/08/25 06:21 BP 125/72 07/08/25 08:52 Pulse Ox 95 07/08/25 08:49 Weight: 80.3 kg Height: 157.48 cm Anesthesia Procedures Epidural Insertion Patient Location: OB Start Time: 08:15 Stop Time: 09:15 Start Date: 07/08/25 Stop Date: 07/08/25 Reason for Block: procedure for pain Patient Position: sitting Performed By: Karlie Plascencia Preanesthetic Checklist: IV checked, risks and benefits discussed, monitors and equipment checked, pre-op evaluation, timeout performed and anesthesia consent Prep: chlorhexidine gluconate Monitoring: blood pressure monitoring, continuous pulse oximetry and heart rate Approach: midline Vertebral Space: lumbar (1-5) Epidural Technique: ANASTASIIA saline Needle Type: Tuohy needle Injection Technique: continuous catheter Needle gauge: 17 Needle Length (cm): 10 cm Needle Insertion Depth (cm): 6 Catheter Gauge: 19 Catheter Type: multi-orifice Catheter at skin depth (cm): 11 Test Dose Result: negative and lidocaine 1.5% with epinephrine 1 to 200,000
[2025-07-08] MEDS: LACTATED RINGERS 1000 ML 1,000 ML 125 ML IV ×2 (08:54→14:52)
--- NOTE | 2025-07-08 09:29 | W.PM.LDBA ---
Subjective History of Present Illness Time Seen by Provider: 08:45 Date Seen: 07/08/25 Narrative: Patient is being admitted to Labor and Delivery for onset of spontaneous labor. She is a 30 year old at 39 weeks 4 days gestation. Her full history and physical was dictated by Joseph Valero CNM on 06/25/25. Patient reports contractions started around 0200. At 0400 she noticed increased vaginal discharge. Around 0600 arrived to unit and was found to be ruptured. Contractions spaced from 2-4 minutes to about 5-7 minutes but are still moderately stong per patient. She elected to get epidural and is now comfortable with that. Specific Issues/Plans Partner: Juan?Son: Rafiq, It is another boy!!! H&P:? 06/25/25 by Joseph Valero CNM Hep B non-immune, recommended immunization. 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 Will finish vaccine series at work. # Carrier for Alpha Thalassemia and Cystic Fibrosis consult for genetic counseling sent, recommended partner testing. Per patient: is negative for everything Imaging:??? MFM Level 2 US: 1. [place] at 18w3d gestational age by LMP c/w 8 week US. 2. Echogenic bowel. 3. No other anomalies commonly detected by ultrasound were identified in the detailed anatomic survey within the limits of ultrasound. 4. Growth parameters and estimated weight were consistent with gestational age predicted by assigned LOUISE. 5. The amniotic fluid volume appeared normal. 6. On transabdominal imaging the cervix appeared long and closed. Recommendation: 1. CMV - IgG, IgG avidity, and IgM 2. Toxoplasmosis - IgG and IgM 3. Ultrasound studies with MF in [place] at 28 and 34 weeks. Follow-up US (04/21/2025): Impression: 1. [place] at 28w3d gestational age. 2. Bowel does not appear to be as bright as bone on today's scan. 3. Adequate interval growth 4. The amniotic fluid volume appeared normal. Recommendation: She is already scheduled for a repeat US at 34 weeks with [facility]. She was encouraged to keep that appointment. 05/26/25 1. [place] intrauterine at 33w 3d gestational age. 2. None of the anomalies commonly detected by ultrasound were evident in the anatomic survey described above. 3. Growth parameters and estimated weight were consistent with appropriate for gestational age pattern of growth. 4. The amniotic fluid volume appeared normal. We reviewed that the bowel appeared within normal limits on today's US, as did the remainder of the anatomy and growth. Recommend further US as additional clinical indications arise. ? Vaccinations:?? COVID: initial series, one booster? Flu: []? Tdap: 05/07/2025? RSV: (seasonal)? 32 week mental health: []? Last pap:? 03/24/24 NIL/neg HPV? OB - Problem Based A/P Additional Plan (1) Pain during labor: Status: Acute (2) 39 weeks gestation of : Status: Acute (3) Echogenic bowel of fetus on ultrasound: Status: Acute (4) Previous child with Trisomy, antepartum: Status: Acute (5) Anxiety: Problem details: not on meds currently Status: Acute Plan ASSESSMENT:? 30 yo at 39 4/7 weeks gestation? complicated by:? echogenic bowel, hx of PPH with anemia pp, previous child with trisomy 21, anxiety, Hep B non-immune, carrier for Alpha Thalassemia and Cystic Fibrosis Labor type: Spontaneous, Active labor? Category 1 FHR pattern.?? Labor complicated by: none? GBS negative? ? PLAN:? 1. Routine intrapartum cares as ordered. Continue with expectant management. Forebag palpated with exam, will consider AROM if contractions space. 2. Monitoring per policy, continuous with epidural placement? 3. Candidate for analgesia of choice.??Requested epidural on arrival and now comfortable. Will continue epidural for pain relief through labor. 4. Patient encouraged to reposition to promote physiologic labor and .? 5. Anticipate ? I,?Addis Saravia APRN, CNAnneliese, was present for visit and have reviewed and agree with documentation by the Certified Nurse Midwifery Student. Delivery/Labor/Induction Plan Plan: expectant management OB Result Labs Blood Type: A (+) positive Rubella: immune RPR/VDLR: nonreactive GBS Status: negative HBsAG: positive (assumed immune now, got vaccines in ) OB Exam Physical Exam Vital signs: Temp Pulse Resp BP Pulse Ox 97.7 F 74 16 128/72 98 07/08/25 09:14 07/08/25 09:10 07/08/25 09:14 07/08/25 09:10 07/08/25 09:15 Narrative: Constitutional: no apparent distress, comfortable with epidural now Respiratory: no labored breathing, lungs clear to auscultation Cardiovascular: regular heart rate and rhythm, no murmurs heard Extremities: getting numb with epidural, needs assistance moving from epidural, no edema Abdomen: soft between contractions, gravid, Leopolds vertex Detailed Labor and Delivery Exam Patient Gravid: yes Dilation (cm): 5 Effacement (%): 80 Cervix position: anterior Consistency: soft Cervical ripeness score: 12 Contraction Frequency: 4-7 min Contraction duration (sec): 100 (80-110) Tachysystole: No Fetus (Single) Station: -1 Amniotic Membrane Status: SROM Amniotic Membrane Fluid Description: Clear Heart Rate Baseline: 125 Monitor Accelerations: Present Monitor Decelerations: None Fpc Variability: Moderate (6-25)
[2025-07-08] MEDS: ROPIVACAINE 0.2% 100 ml 100 ML 12 MG EPIDURAL (09:34)
[2025-07-08 09:35] LABS: Hematocrit* 39.5 % (33.0-51.0); Hemoglobin* 12.7 gm/dL (12.0-16.0); Immature Granulocytes Pct Auto 1.4 %; Lymphocytes Absolute Auto 1.50 K/uL (0.90-2.90); Mean Corpuscular HGB Conc 32 gm/dL (32-36); Mean Corpuscular Hemoglobin 26 pg (26-34); Mean Corpuscular Volume 80 fL (80-100); RDW Coefficient of Variation % 14.1 % (11.5-15.5); Red Blood Count* 4.96 m/uL (4.00-5.20); White Blood Count* 11.01 K/uL (4.50-11.00)
[2025-07-08 09:39] LABS: Immature Granulocytes Abs Auto 0.20 K/uL (0.00-0.30); Slide Review Reflex No
--- NOTE | 2025-07-08 11:58 | P.OBPN_ITS ---
Subjective Time Seen by Provider: 12:00 Date Seen: 07/08/25 Narrative: Charo is sitting in Dasilva's position high fowlers now. She was able to get a nap this morning after epidural placement. Is comfortable and not feeling contractions. Objective Vital Signs: Last Vital Signs Temp 98.2 F 07/08/25 10:47 Pulse 75 07/08/25 11:33 Resp 16 07/08/25 10:47 BP 118/75 07/08/25 11:33 Pulse Ox 98 07/08/25 09:15 Pelvic Exam Dilation (cm): 6 Effacement (%): 90 Station: -1 Comments: Buldging forebag Contractions Monitor mode: External Contraction Frequency: 3-9min Contraction pattern: Irregular Contraction intensity: Moderate Assessment Assessment: active labor Station: -1 Amniotic Membrane Status: AROM (Ruptured at home and then AROM forebag at 1250. Clear fluid) Status: Category l Heart Rate Baseline: 135 Reclamation Supervisor Variability: Moderate (6-25) Monitor Accelerations: Present Monitor Decelerations: None Labor Progress: progressing Maternal Status: comfortable, involved but flexible with plan of care Plan Plan: Assessment: at 39w4d Active labor history of hemorrhage Plan: epidural for pain management assist with repositioning pitocin if needed anticipate I,?Addis Saravia APRN, CNM, was present for visit and have reviewed and agree with documentation by the Certified Nurse Midwifery Student.
[2025-07-08] MEDS: PHENYLEPHRINE 100 MCG/ML SYRINGE IVP (12:24)
[2025-07-08] MEDS: ONDANSETRON 2 MG/ML inj 4 MG IV (12:46)
[2025-07-08] MEDS: OXYTOCIN 30 unit/500 ML in NS 30 UNIT/500 ML BAG 300 UNIT IVPB (16:12)
[2025-07-08] MEDS: LIDOCAINE 1 % PF 30 ML INJECTION (16:20)
--- NOTE | 2025-07-08 17:02 | W.PM.OBVAGDE ---
OB Procedure Vag Delivery Mother Details Mother Details: The patient is a 30 year-old, 2, now Para 2, admitted on 07/08/25 at 39 weeks 4 days gestation in spontaneous labor. : 2 Para: 2 Weeks Gestation: 39 (39.4) Admission Date: 07/08/25 Additional Details Amniotic Membrane Status: SROM Amniotic Membrane Rupture Date: 07/08/25 Amniotic Membrane Rupture Time: 04:00 Amniotic Membrane Fluid Description: Clear Analgesia/Anesthesia Type: Epidural Waterbirth: No Pitcoin: Yes ([facility] only) Intrapartal Events: Labor Augmentation Delivery augmentation: rupture of membranes Labor Onset: 11:48 Complete: 15:47 Pushin:00 Heart: heart tones during second stage were category 2. For the two minutes before heart rate was 60-80s. Delivery Details Delivery Date: 07/08/25 Delivery Time: 16:10 Route of delivery: Infant Gender: Male Infant Viability: Alive; Heart Rate Present Position at Delivery: OA Delivery Details: Charo was very numb with epidural but beginning to feel rectal pressure. Duke catheter was noted to have been expelled with ballon still inflated. Nurse notes it was in place and draining clear, yellow urine 20 minutes earlier when they assisted with repositioning. Cervical check performed and she was complete at 1547 and +3. Guided on pushing and delivered a viable male infant via spontaneous vaginal delivery, OA. was placed on maternal abdomen and stimulated. [facility] IV Pitocin given. Cord was clamped and cut after a 5 minute delay. Nose and mouth were bulb suctioned.?Infant weight pending. Fundus firm. Bladder was full but able to empty urine with fundal massage, 500 mL of urine. QBL 200. Perineal 1st degree tear repaired. Periurethral abrasion not repaired. SHASHI Hidalgo I,?Addis Saravia, SEXUAL ASSAULT COUNSELLOR, CNM, was present for visit and have reviewed and agree with documentation by the Certified Nurse Midwifery Student. 1 Minute Interval Total Score: 7 5 Minute Interval Total Score: 8 Additional Details Shoulder Dystocia: No Placenta Delivery Time: 16:17 Placental Delivery Description: Spontaneous Delivery repair: Vicryl Procedure Done: Global Blood Loss: 200 Laceration: Perineal - 1st Degree Episiotomy Description: None Blood Loss Measurement Type: QBL Bakri Used: No Sponge/Need Count Correct: Yes Cord Vessel Description: 3 Vessels Event Summary Status: Mother and infant were stable after delivery and beginning to breastfeed. Disposition: floor
[2025-07-08] MEDS: ACETAMINOPHEN 500 MG TABLET 1000 MG PO (19:35)
[2025-07-09 00:58] VITALS: BP 130/83; PULSE 72; RESP 16; TEMP 36.5; O2SAT 98
[2025-07-09 04:30] VITALS: BP 114/62; PULSE 68; RESP 16; TEMP 36.7; O2SAT 99
[2025-07-09] MEDS: DOCUSATE SODIUM 100 MG CAPSULE PO (06:22)
[2025-07-09] MEDS: ACETAMINOPHEN 500 MG TABLET 1000 MG PO (06:22)
[2025-07-09 08:12] VITALS: BP 119/75; PULSE 76; RESP 16; O2SAT 97
--- NOTE | 2025-07-09 08:22 | PM.OBDSVD1 ---
DS: Providers Provider Date Seen: 07/09/25 Date of admission: 07/08/25 06:50 Primary care physician: Not a Local Provider Admitting Clinician: Keerthi Valero CNM Attending Physician on discharge: Keerthi Valero CNM Date of Discharge: 07/09/25 DS: Diagnosis Discharge Diagnosis (1) care and examination of lactating mother: Status: Acute Exam Narrative: Exam Narrative: VSS, afebrile GENERAL APPEARANCE: ?normal affect, alert, no distress MOOD: ?appropriate HEENT: normocephalic, neck supple, full ROM CHEST: ?Symmetrical chest wall movement. ?Normal respiratory effort. ?Clear to auscultation HEART: ?regular rate and rhythm ABDOMEN: ?soft, non-tender. Uterine fundus is firm, at Umbilicus, Midline and is appropriate for the stage of recovery. ?Bowel sounds present. PERINEUM: ?mild edema of the perineum, there is a 1st degree laceration that is healing well. EXTREMITIES: ?normal and trace edema Const: Vital Signs, click to edit/add: Vital Signs - 24 hr 07/08/25 08:23 07/08/25 08:24 07/08/25 08:28 Temperature Pulse Rate Pulse Rate [Pulse Oximeter] Respiratory Rate Blood Pressure Blood Pressure [Le ft Arm] Pulse Oximetry 100 93 [facility] 08:33 07/08/25 08:34 07/08/25 08:36 Temperature Pulse Rate 76 88 Pulse Rate [Pulse Oximeter] Respiratory Rate Blood Pressure 132/88 136/93 H Blood Pressure [Le ft Arm] Pulse Oximetry 100 89 [facility] 07/08[facility] 08:37 07/08/25 08:38 07/08/25 08:40 Temperature Pulse Rate 74 70 Pulse Rate [Pulse Oximeter] Respiratory Rate Blood Pressure 130/83 116/75 Blood Pressure [Le ft Arm] Pulse Oximetry 100 Oxygen Delivery Nh thod 07/08/25 08:42 07/08/25 08:43 07/08/25 08:44 Temperature Pulse Rate 70 81 Pulse Rate [Pulse Oximeter] Respiratory Rate Blood Pressure 117/74 119/75 Blood Pressure [Le ft Arm] Pulse Oximetry 100 [facility] 07/08/25 08:46 07/08/25 08:48 07/08/25 08:49 Temperature Pulse Rate 71 89 Pulse Rate [Pulse Oximeter] Respiratory Rate Blood Pressure 119/74 126/71 Blood Pressure [Le ft Arm] Pulse Oximetry 92 95 Oxygen Delivery Me thod 07/08/25 08:50 07/08/25 08:52 07/08/25 08:54 Temperature Pulse Rate 72 75 76 Pulse Rate [Pulse Oximeter] Respiratory Rate Blood Pressure 125/71 125/72 121/63 Blood Pressure [Le ft Arm] Pulse Oximetry 97 Oxygen Delivery Me thod 07/08/25 09:00 07/08/25 09:05 07/08/25 09:10 Temperature Pulse Rate 74 Pulse Rate [Pulse Oximeter] Respiratory Rate Blood Pressure 128/72 Blood Pressure [Le ft Arm] Pulse Oximetry 100 100 99 Oxygen Delivery Me thod 07/08/25 09:14 07/08/25 09:15 07/08/25 09:33 Temperature 97.7 F Pulse Rate 83 Pulse Rate [Pulse Oximeter] Respiratory Rate 16 Blood Pressure 100/63 Blood Pressure [Le ft Arm] Pulse Oximetry 98 Oxygen Delivery Me thod 07/08/25 09:48 07/08/25 10:03 07/08/25 10:18 Temperature Pulse Rate 83 77 68 Pulse Rate [Pulse Oximeter] Respiratory Rate Blood Pressure 104/62 106/61 108/61 Blood Pressure [Le ft Arm] Pulse Oximetry Oxygen Delivery Nh thod 07/08/25 10:33 07/08/25 10:47 07/08/25 10:48 Temperature 98.2 F Pulse Rate 85 98 Pulse Rate [Pulse Oximeter] Respiratory Rate 16 Blood Pressure 100/62 103/71 Blood Pressure [Le ft Arm] Pulse Oximetry Oxygen Delivery Nh thod 07/08/25 11:04 07/08/25 11:19 07/08/25 11:33 Temperature Pulse Rate 75 77 75 Pulse Rate [Pulse Oximeter] Respiratory Rate Blood Pressure 121/75 120/74 118/75 Blood Pressure [Le ft Arm] Pulse Oximetry Oxygen Delivery Me thod 07/08/25 12:03 07/08/25 12:18 07/08/25 12:19 Temperature Pulse Rate 77 89 86 Pulse Rate [Pulse Oximeter] Respiratory Rate Blood Pressure 107/65 77/51 L 74/47 L Blood Pressure [Le ft Arm] Pulse Oximetry Oxygen Delivery Me thod 07/08/25 12:20 07/08/25 12:25 07/08/25 12:25 Temperature Pulse Rate 62 Pulse Rate [Pulse Oximeter] Respiratory Rate Blood Pressure 124/76 Blood Pressure [Le ft Arm] Pulse Oximetry 97 89 87 L Oxygen Delivery Me thod 07/08/25 12:26 07/08/25 12:34 07/08/25 12:34 Temperature 97.7 F Pulse Rate 58 L 88 Pulse Rate [Pulse Oximeter] Respiratory Rate 12 Blood Pressure 131/84 129/82 Blood Pressure [Le ft Arm] Pulse Oximetry Oxygen Delivery Nh thod 07/08/25 12:49 07/08/25 13:18 07/08/25 13:33 Temperature Pulse Rate 80 63 83 Pulse Rate [Pulse Oximeter] Respiratory Rate Blood Pressure 128/85 118/74 117/77 Blood Pressure [Le ft Arm] Pulse Oximetry [facility] 07[facility] 13:41 07/08/25 13:49 07/08/25 14:04 Temperature 97.8 F Pulse Rate 66 67 Pulse Rate [Pulse Oximeter] Respiratory Rate Blood Pressure 121/77 119/72 Blood Pressure [Le ft Arm] Pulse Oximetry [facility] 07/[facility] 14:18 07/08/25 14:34 07/08/25 14:41 Temperature Pulse Rate 76 75 Pulse Rate [Pulse Oximeter] Respiratory Rate Blood Pressure 122/75 131/69 Blood Pressure [Le ft Arm] Pulse Oximetry 97 [facility] 07/08/25 14:45 07/08/25 14:48 07/08/25 15:04 Temperature 98.5 F Pulse Rate 74 64 Pulse Rate [Pulse Oximeter] Respiratory Rate 16 Blood Pressure 124/74 122/74 Blood Pressure [Le ft Arm] Pulse Oximetry Oxygen Delivery Nh thod 07/08/25 15:18 07/08/25 15:34 07/08/25 15:47 Temperature 98.4 F Pulse Rate 72 69 Pulse Rate [Pulse Oximeter] Respiratory Rate Blood Pressure 120/76 132/75 Blood Pressure [Le ft Arm] Pulse Oximetry Oxygen Delivery Nh thod 07/08/25 15:48 07/08/25 15:51 07/08/25 16:18 Temperature 97.8 F Pulse Rate 78 Pulse Rate [Pulse Oximeter] Respiratory Rate 16 Blood Pressure 140/84 H Blood Pressure [Le ft Arm] Pulse Oximetry 99 Oxygen Delivery Me thod 07/08/25 16:19 07/08/25 16:32 07/08/25 16:33 Temperature Pulse Rate 75 75 Pulse Rate [Pulse Oximeter] Respiratory Rate 16 Blood Pressure 131/78 127/75 Blood Pressure [Le ft Arm] Pulse Oximetry Oxygen Delivery Me thod 07/08/25 16:47 07/08/25 16:48 07/08/25 17:02 Temperature Pulse Rate 73 Pulse Rate [Pulse Oximeter] Respiratory Rate 16 16 Blood Pressure 129/75 Blood Pressure [Le ft Arm] Pulse Oximetry Oxygen Delivery Me thod 07/08/25 17:03 07/08/25 17:17 07/08/25 17:18 Temperature Pulse Rate 71 69 Pulse Rate [Pulse Oximeter] Respiratory Rate 16 Blood Pressure 128/75 123/69 Blood Pressure [Le ft Arm] Pulse Oximetry Oxygen Delivery Nh thod 07/08/25 17:32 07/08/25 17:33 07/08/25 17:47 Temperature Pulse Rate 67 Pulse Rate [Pulse Oximeter] Respiratory Rate 16 16 Blood Pressure 125/70 Blood Pressure [Le ft Arm] Pulse Oximetry Oxygen Delivery Nh thod 07/08/25 17:48 07/08/25 17:54 07/08/25 17:59 Temperature Pulse Rate 66 Pulse Rate [Pulse Oximeter] Respiratory Rate Blood Pressure 117/71 Blood Pressure [Le ft Arm] Pulse Oximetry 99 100 Oxygen Delivery Nh thod 07/08/25 18:02 07/08/25 18:03 07/08/25 18:04 Temperature 98.3 F Pulse Rate 71 Pulse Rate [Pulse Oximeter] Respiratory Rate 16 Blood Pressure 121/75 Blood Pressure [Le ft Arm] Pulse Oximetry 100 100 Oxygen Delivery Me thod 07/08/25 21:05 07/09/25 00:58 07/09/25 04:30 Temperature 97.7 F 98.0 F Pulse Rate Pulse Rate [Pulse Oximeter] 85 72 68 Respiratory Rate 20 16 16 Blood Pressure Blood Pressure [Le ft Arm] 121/78 130/83 114/62 Pulse Oximetry 96 98 99 Oxygen Delivery Me od Room Air Room Air Room Air 07/09/25 08:12 Temperature Pulse Rate Pulse Rate [Pulse Oximeter] 76 Respiratory Rate 16 Blood Pressure Blood Pressure [Le ft Arm] 119/75 Pulse Oximetry 97 Oxygen Delivery Me od Room Air Documenting provider has reviewed patient's vital signs: yes OB - DS: Summary Hospital Course Hospital Course: Charo is a 30 y.o. who was admitted to [facility] for labor. ?She had an uncomplicated NVD.?The patient feels well. ?The pain is well controlled with current medications. ?She has no new complaints. ?She is breast feeding and reports things are going well.? the patient has done well.? Vitals have been stable.? She has remained afebrile.? Has a good appetite, is tolerating a general diet. ?She is voiding without difficulty.? She is passing gas and has not had a bowel movement.? She is ambulating and denies any dizziness.? Has Small amount of rubra lochia. ?She is planning a Mirena IUD for prevention. She is requesting discharge today. Peripartum Data delivery method: Vaginal Laceration description: Perineal - 1st Degree complications: none [place] Infant Gender: Male Infant Discharge Plan: Home Status at Discharge Functional status at discharge: independent ambulation Overall status at discharge: patient is progressing back to baseline Time Spent with Patient Time attestation: Total time spent providing and/or coordinating discharge services: Time spent: Less than 30 minutes Discharge Plan Discharge Disposition: Home, Self-Care Date of Admission: 07/08/25 06:50 Attending Provider on Discharge: Keerthi Valero Primary Care Provider: Provider,Not a Local Condition: Stable Anticipated Discharge Date/Time: 07/09/25 12:00 Discharge Medications: New acetaminophen 500 mg Tablet 1,000 mg PO Q6H PRNQty: 0 0RF docusate sodium 100 mg Capsule 100 mg PO DAILY Qty: 90 0RF ibuprofen 600 mg Tablet 600 mg PO Q6H PRNQty: 60 0RF Continued Classic 28 mg iron- 800 mcg tablet 1 tab PO DAILY (DME) breast pump Device See Rx Instructions .Route Qty: 1 0RF Rx Instructions: As directed pantoprazole 20 mg tablet,delayed release (DR/EC) 20 mg PO DAILY Qty: 90 0RF Discontinued pyridoxine (vitamin B6) 25 mg tablet 25 mg PO QDAY Unisom (doxylamine) 25 mg tablet 25 mg PO QHS PRN aspirin [Aspirin Childrens] 81 mg tablet,chewable 81 mg PO DAILY Discharge Orders: Discharge Order (Routine); Ordered 07/09/25 Ordered By: Keerthi Valero Patient Education: OB Over the Counter Medication Information, OB Vaginal/Breast Feeding Additional Instructions: Discharge instructions were reviewed with the patient including signs and symptoms of infection and home going medications Nothing vaginally for 6 weeks: no tampons or intercourse Off Work or School for 6 weeks 2-week visit: discuss feeding concerns, review control options and screen for anxiety/depression. 6-week visit for an annual exam. consultation services are available to all mothers and babies for the first year after delivery.? To make an appointment, please call [phone]. Activity Level: Activity as Tolerated Discharge Diet: Regular Follow Up Appointments: Provider,Not a Local [Primary Care Provider, Family Practice] [facility] [Provider Group] Forms: Patient Belongings, MyHealth Info Instructions
[2025-07-09 12:02] VITALS: BP 113/73; PULSE 67; RESP 16; O2SAT 97
--- NOTE | 2025-07-09 13:21 | PM.ANPOST ---
Post Anesthesia Note Post Anesthesia Note Patient seen: Inpatient Respiratory Status: adequate Cardiovascular Status: adequate Mental Status: baseline Pain: adequate Temp: baseline Anesthetic awareness: N/A Complications: none Follow care: none
== END 2025-07-09 17:41 | disposition home or self-care (01) | DRG 807 ==
LOC: OB OUT 06:50 → OB 06:50
PROVIDERS: Advanced Practice Midwife; Admitting Provider Advanced Practice Midwife; Visit Provider Advanced Practice Midwife
DX: O35.DXX0 Maternal care for other (suspected) fetal abnormality and damage, fetal gastrointestinal anomalies, not applicable or unspecified (principal); Z37.0 Single live birth; O70.0 First degree perineal laceration during delivery; O99.344 Other mental disorders complicating childbirth; F41.9 Anxiety disorder, unspecified; F40.10 Social phobia, unspecified; Z14.1 Cystic fibrosis carrier; Z14.8 Genetic carrier of other disease; Z82.79 Family history of other congenital malformations, deformations and chromosomal abnormalities; Z3A.39 39 weeks gestation of pregnancy
CPT/HCPCS: 01967; 36415; 84112; 85025; A9270; J2003; J2405; J2795; J7120